=== PATIENT | female | born 1950 | race Caucasian/White ===

== ENCOUNTER → 2016-10-12 | Outpatient (CLI) | payer MEDICARE, BC ==
--- NOTE | 2016-10-12 10:57 | KCIC ---
EXAM: Left hand, 3 views HISTORY: Pain. COMPARISON: None. FINDINGS: Frontal, lateral and oblique views of the left hand are obtained. There is a mildly angulated fracture of the distal aspect of the fifth metacarpal. No additional fracture is seen. There is moderate first carpometacarpal joint space narrowing with subchondral sclerosis and spurring. IMPRESSION: 1. Mildly irregular limited fracture of the fifth metacarpal. 2. Moderate first carpometacarpal osteoarthritis. Electronically signed by: Shasta Plummer MD (10/12/2016 10:54 AM) [email or web address]
== END | disposition home or self-care (01) ==
LOC: KCIC 10:30
PROVIDERS: ATTEND Nurse Practitioner Family
DX: M19.042 Primary osteoarthritis, left hand (principal)
CPT/HCPCS: 73130

== ENCOUNTER → 2017-12-09 | Outpatient (CLI) | payer MEDICARE ==
--- NOTE | 2017-12-09 17:27 | KCIC ---
Bilateral digital screening mammograms with 3-D tomosynthesis: Reason for examination: Routine screening. History of left breast cancer with lumpectomy in 2009. Comparison is made to previous studies dated 01/30/2016 and 05/04/2014. Bilateral mammograms in CC and oblique projections were obtained with 2-D imaging and 3-D tomosynthesis imaging on a Siemens Inspiration unit and reviewed on the workstation. Interpretation was made with the benefit of CAD. The skin and nipples show no abnormalities. No abnormal axillary lymph nodes are seen. The breast parenchyma shows scattered fatty and fibroglandular density. (Breast density: Category B.) There are postop changes in the left breast and axilla. There is a nodule consistent with an intramammary lymph node again seen at the 10:00 C position of the right breast. There are no new dominant masses, suspicious calcifications or architectural distortion. Benign calcifications are present. Impression: Postop changes in the left breast and axilla. No evidence of new or recurrent malignancy. Recommend routine screening. BI-RAD Category 2: Benign. "Our facility is accredited by the [employer] Mammography Program." This patient's information has been entered into a reminder system for the patient to be notified with the results of her examination and a target date for the next mammogram. Electronically signed by: Megan Avilez MD (12/09/2017 5:23 PM) [id number]
== END | disposition home or self-care (01) ==
LOC: KCIC MAMMO 13:37
PROVIDERS: ATTEND Nurse Practitioner Family
DX: Z12.31 Encounter for screening mammogram for malignant neoplasm of breast (principal)
CPT/HCPCS: 77063; 77067